=== PATIENT | male | born 1960 | race American Indian/Alaskan Native ===

== ENCOUNTER 2018-01-11 06:41 | Inpatient (IN) | payer OTHER ==
[2018-01-03 14:33] VITALS: BMI 33.0
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
[2018-01-11] MEDS ORDERED: Bacitracin Ointment 30 GM TUBE ONE (07:31)
[2018-01-11 07:51] LABS: BASO # 0.1 K/uL (0.0-0.2); BASO % 1.6 % (0.0-2.0); EOS # 0.3 K/uL (0.0-0.7); EOS % 8.7 % (0.0-4.0); HEMOGLOBIN 16.1 g/dL (12.0-18.0); LYMPH # 1.8 K/uL (1.0-4.3); LYMPH % 45.4 % (20.0-40.0); MEAN CELL VOLUME 83.3 fl (80.0-94.0); MEAN CORPUSCULAR HEMOGLOBIN 27.6 pg (27.0-31.0); MEAN CORPUSCULAR HGB CONC 33.2 g/dL (33.0-37.0); MEAN PLATELET VOLUME 10.3 fl (7.2-11.7); MONO # 0.5 K/uL (0.0-0.8); MONO % 11.4 % (0.0-10.0); NEUT # 1.3 K/uL (1.8-7.0); NEUT % 32.9 % (50.0-75.0); NRBC % 0.3 % (0.0-0.0); RBC 5.82 Mil/uL (4.40-5.90); RED CELL DISTRIBUTION WIDTH 17.5 % (11.5-14.5)
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
[2018-01-11] MEDS: Tranexamic Acid 1,000 MG in Sodium Chloride 0.9% 100 ML IVPB SCH ×3 (09:32→11:20)
[2018-01-11] MEDS ORDERED: Propofol 10 mg/ml Inj (20 ML) ONE (10:03)
[2018-01-11] MEDS ORDERED: Morphine 1 mg/ml preservative-free Inj(Duramorph) ONE (10:03)
[2018-01-11] MEDS ORDERED: Rocuronium 10 mg/ml (5 ml) ONE ×4 (10:03→13:58)
[2018-01-11] MEDS ORDERED: Succinylcholine 200 mg/10 ml Inj IV ONE (10:03)
[2018-01-11] MEDS ORDERED: Midazolam 2 MG/2 ML VIAL ONE (10:03)
[2018-01-11] MEDS ORDERED: Neostigmine 1:1000 (1 mg/ml) Inj ONE (10:04)
[2018-01-11] MEDS ORDERED: Lidocaine 4% (Laryng-O-Jet) Kit MM ONE (10:04)
[2018-01-11] MEDS ORDERED: Lactated Ringer's 1,000 ML IV ONE ×2 (10:20→13:00)
[2018-01-11] MEDS ORDERED: ePHEDrine 50 mg/ml Inj ONE (10:58)
[2018-01-11] MEDS ORDERED: Sodium Chloride 0.9% 10 ML IV ONE ×3 (10:58→13:58)
[2018-01-11] MEDS ORDERED: Sodium Chloride 0.9% 1,000 ML IV ONE (11:00)
[2018-01-11] MEDS ORDERED: Dexamethasone 4 mg/1 ml ONE (12:02)
[2018-01-11] MEDS ORDERED: EPINEPHrine 1 mg/ml (1:1000) Inj ONE (12:35)
[2018-01-11] MEDS ORDERED: Desflurane Inhalation Anesthetic Liq (240 ml) ONE (13:17)
[2018-01-11] MEDS ORDERED: HEMOSTATIC MATRIX 10 ML DIS.NEEDLE TOP ONE (13:37)
[2018-01-11] MEDS ORDERED: Oxycodone/Acetaminophen 5/325 mg Tab PO PRN (14:53)
[2018-01-11] MEDS ORDERED: Lactated Ringer's 1,000 ML IV SCH ×2 (15:00→17:30)
[2018-01-11] MEDS ORDERED: HYDROmorphone 0.5 mg/0.5 ml ISec IVP PRN (15:29)
[2018-01-11] MEDS ORDERED: Dexamethasone 4 mg/1 ml IVP PRN (15:29)
[2018-01-11] MEDS ORDERED: Trimethobenzamide 200 mg/2 mL Inj IM ONE (16:19)
--- NOTE | 2018-01-11 16:41 | RAD ---
PROCEDURE: Left Hip X-ray Radiographs. HISTORY: s/p L DENVER COMPARISON: No prior study available comparison FINDINGS: BONES: Interval left total hip replacement. Satisfactory alignment. Expected unremarkable postoperative changes within the surrounding soft tissues. . Note that the lower vertebral bodies exhibits somewhat dense appearance and less of the pelvis the which could be related to technique however underlying infiltrative sclerotic disease process including but not limited to the sclerotic metastasis not excluded. JOINTS: Mild degenerative changes right hip SOFT TISSUES: Normal. OTHER FINDINGS: None. IMPRESSION: Interval left total hip replacement. Satisfactory alignment. Expected unremarkable postoperative changes within the surrounding soft tissues. Note that the lower vertebral bodies exhibits somewhat dense appearance and less of the pelvis the which could be related to technique however underlying infiltrative sclerotic disease process including but not limited to the sclerotic metastasis not excluded.
[2018-01-11] MEDS: ceFAZolin 2 GM in Sodium Chloride 0.9% 100 ML IVPB SCH (17:30)
[2018-01-12] MEDS: ceFAZolin 2 GM in Sodium Chloride 0.9% 100 ML IVPB SCH (00:22)
[2018-01-12 06:37] LABS: HEMOGLOBIN 11.4 g/dL (12.0-18.0); MEAN CELL VOLUME 81.7 fl (80.0-94.0); MEAN CORPUSCULAR HEMOGLOBIN 27.5 pg (27.0-31.0); MEAN CORPUSCULAR HGB CONC 33.6 g/dL (33.0-37.0); RBC 4.14 Mil/uL (4.40-5.90); RED CELL DISTRIBUTION WIDTH 17.4 % (11.5-14.5); WHITE BLOOD COUNT 9.5 K/uL (4.8-10.8)
--- NOTE | 2018-01-12 09:21 | CP.PCM.PN ---
Subjective - Date & Time of Evaluation Date of Evaluation: 01/12/18 Time of Evaluation: 07:30 - Subjective Subjective: Patient states he has very little pain. Denies CP/SOb/dizziness/n/v/numbness/tingling Objective - Vital Signs/Intake and Output Vital Signs (last 24 hours): Temp Pulse Resp BP Pulse Ox 97.9 F 74 20 111/61 99 01/12/18 08:27 01/12/18 08:27 01/12/18 08:27 01/12/18 08:27 01/12/18 08:27 - Medications Medications: Current Medications Acetaminophen (Tylenol 325mg Tab) 650 mg PO Q4 PRN PRN Reason: Fever 101 degrees fahrenheit Docusate Sodium (Colace) 100 mg PO BID [facility] Enoxaparin Sodium (Lovenox) 40 mg SC DAILY [facility]; Protocol Hydrochlorothiazide (Microzide) 12.5 mg PO DAILY [facility] Losartan Potassium (Cozaar) 100 mg PO DAILY [facility] Morphine Sulfate (Morphine) 2 mg IVP Q4 PRN PRN Reason: Pain, severe (8-10) Ondansetron HCl (Zofran Inj) 4 mg IVP ONCE PRN PRN Reason: Nausea/Vomiting Oxycodone/Acetaminophen (Percocet 5/325 Mg Tab) 1 tab PO Q4 PRN PRN Reason: Pain, Mild (1-3) Stop: 01/14/18 14:54 Oxycodone/Acetaminophen (Percocet 5/325 Mg Tab) 2 tab PO Q4 PRN PRN Reason: Pain, moderate (4-7) Stop: 01/14/18 14:54 - Labs Labs: 01/12/18 05:25 01/12/18 05:25 - Extremities Exam Additional comments: LLE: +ROM ankle/toes, sensation intact, +DP/PT pulses calves soft NT neg homans dressing intact, no visible drainage. Assessment and Plan (1) Primary osteoarthritis of left hip Assessment & Plan: POD#1 s/p Left THR lovenox for VTE proph per Dr. Lopez PT/OT FWB LLE d/c planning to TCU per pt request f/u vit D d/w Dr. Lopez agrees with above Status: Acute (2) HTN (hypertension) Status: Acute
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
[2018-01-12] MEDS: Enoxaparin 40 mg Syringe SC SCH (10:25)
[2018-01-12] MEDS: Oxycodone/Acetaminophen 5/325 mg Tab PO PRN ×3 (12:31→22:48)
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
[2018-01-13] MEDS: Oxycodone/Acetaminophen 5/325 mg Tab PO PRN ×4 (03:08→22:28)
[2018-01-13 06:28] LABS: HEMOGLOBIN 11.4 g/dL (12.0-18.0); MEAN CELL VOLUME 81.9 fl (80.0-94.0); MEAN CORPUSCULAR HEMOGLOBIN 27.7 pg (27.0-31.0); MEAN CORPUSCULAR HGB CONC 33.8 g/dL (33.0-37.0); RBC 4.14 Mil/uL (4.40-5.90); RED CELL DISTRIBUTION WIDTH 17.8 % (11.5-14.5); WHITE BLOOD COUNT 8.8 K/uL (4.8-10.8)
[2018-01-13 06:36] LABS: BLOOD UREA NITROGEN 27 mg/dl (9-20); CALCIUM 8.8 mg/dL (8.4-10.2); GFR NON-AFRICAN AMERICAN > 60
--- NOTE | 2018-01-13 07:48 | PCM.SURG1 ---
Surgeon's Initial Post Op Note - Surgeon's Notes Surgeon: Jessica Electric Distribution Engineer: Sebas Perez PA-C/ GHAZALA Beltran Type of Anesthesia: General Endo, Spinal Anesthesia Administered By: DR Fermin valdovinos Pre-Operative Diagnosis: severe hypertrophic O/A L Hip Operative Findings: as above. contracture iliopsoas tendon Post-Operative Diagnosis: as above Operation Performed: L THR Anterior approach. femoral neck osteootmy. arthrotomy/synovectomy. release iluiopsoas tendon. autograft/allogrtfat bone graft to acetabulum Specimen/Specimens Removed: bone/ synovium/cartilage Estimated Blood Loss: EBL {In ML}: 75 Blood Products Given: N/A Drains Used: No Drains Post-Op Condition: Good Date of Surgery/Procedure: 01/13/18 Time of Surgery/Procedure: 11:35 (time in room/anaesthjesia indcution time 11:20/ end time 1440)
[2018-01-13] MEDS: Enoxaparin 40 mg Syringe SC SCH (08:31)
--- NOTE | 2018-01-13 12:14 | CP.PCM.PN ---
Subjective - Date & Time of Evaluation Date of Evaluation: 01/13/18 Time of Evaluation: 12:11 - Subjective Subjective: Patient states pain is controlled. He denies CP/SOB/dizziness. He is negotiating for transfer to TCU as was denied per insurance. Objective - Vital Signs/Intake and Output Vital Signs (last 24 hours): Temp Pulse Resp BP Pulse Ox 99.1 F 79 20 144/81 98 01/13/18 08:34 01/13/18 08:34 01/13/18 08:34 01/13/18 08:34 01/13/18 08:34 - Medications Medications: Current Medications Acetaminophen (Tylenol 325mg Tab) 650 mg PO Q4 PRN PRN Reason: Fever 101 degrees fahrenheit Cholecalciferol (Vitamin D) 2,000 intlu PO DAILY [facility] Docusate Sodium (Colace) 100 mg PO BID [facility] Last Admin: 01/13/18 08:29 Dose: 100 mg Enoxaparin Sodium (Lovenox) 40 mg SC DAILY [facility]; Protocol Last Admin: 01/13/18 08:31 Dose: 40 mg Hydrochlorothiazide (Microzide) 12.5 mg PO DAILY [facility] Last Admin: 01/13/18 08:30 Dose: 12.5 mg Losartan Potassium (Cozaar) 100 mg PO DAILY [facility] Last Admin: 01/13/18 08:30 Dose: 100 mg Morphine Sulfate (Morphine) 2 mg IVP Q4 PRN PRN Reason: Pain, severe (8-10) Last Admin: 01/13/18 08:19 Dose: 2 mg Ondansetron HCl (Zofran Inj) 4 mg IVP ONCE PRN PRN Reason: Nausea/Vomiting Last Admin: 01/13/18 08:36 Dose: 4 mg Oxycodone/Acetaminophen (Percocet 5/325 Mg Tab) 1 tab PO Q4 PRN PRN Reason: Pain, Mild (1-3) Stop: 01/14/18 14:54 Oxycodone/Acetaminophen (Percocet 5/325 Mg Tab) 2 tab PO Q4 PRN PRN Reason: Pain, moderate (4-7) Stop: 01/14/18 14:54 Last Admin: 01/13/18 11:17 Dose: 2 tab - Labs Labs: 01/13/18 05:20 01/13/18 05:20 - Extremities Exam Additional comments: Left hip dressing change. Dry. Incision intact no erythema. +ROM ankle/toes, sensation intact +DP?PT pulses calves sfot NT neg homans Assessment and Plan (1) Primary osteoarthritis of left hip Assessment & Plan: POD#2 s/p L THR d/c planning to TCU, denied by insurance Patient improving with PT, but not cleared to go home at current functional level cont VTE proph cont PT/OT d/w Dr. Lopez, agrees with above Status: Acute (2) HTN (hypertension) Status: Acute (3) Vitamin D deficiency Assessment & Plan: supp Status: Acute
--- NOTE | 2018-01-13 12:26 | OP ---
PROCEDURE DATE: 01/11/2018 PREOPERATIVE DIAGNOSIS: Severe hypertrophic osteoarthritis of the left hip. OPERATIVE FINDINGS Severe hypertrophic osteoarthritis of the left hip with multiple contractures, contracture of the iliopsoas tendon and capsular contractures. POSTOPERATIVE DIAGNOSIS: Severe hypertrophic osteoarthritis of the left hip with the above-noted iliopsoas tendon contracture and capsular contractures. OPERATION PERFORMED: 1. Left anterior approach hip replacement. 2. Femoral neck osteotomy. 3. Arthrotomy, synovectomy. 4. Release of iliopsoas tendon. 5. Autograft and allograft bone graft. 6. Computer navigation. SPECIMENS REMOVED: Bone, synovium, cartilage. BLOOD LOSS: 75 mL. BLOOD PRODUCTS: No blood products given. DRAINS: No drains. POSTOPERATIVE CONDITION: Stable. TIME OF PROCEDURE: 11:35. TIME IN THE ROOM: 10:20. END TIME: 1440. OPERATIVE INDICATION: Levi Keenan is a 57-year-old gentleman with severe pain and restricted range of motion of the left hip. The patient has treated this conservatively for years. The patient was seen by me, has evidence of a leg-length inequality. The patient failed conservative management over the years. Pros, cons, risks and benefits of replacement arthroplasty discussed at length with the patient. The possibility of leg length inequality, nerve injury, mechanical failure, infection, thromboembolic disease, secondary or tertiary surgery was discussed. The patient can no longer withstand the discomfort and wished the surgery to be accomplished. OPERATIVE PROCEDURE After having obtained informed consent in the above fashion, after having identified the side, site and procedure and a critical pause/time-out after the satisfactory induction of the anesthetic, the patient was placed on the [facility] traction positioner. The left lower extremity was prepped and free draped in usual fashion for lower extremity surgery, specifically anterior approach hip surgery. Under the surgeon's direction, the fluoroscope was positioned, video images were generated, therapeutic decisions were made therefrom. This having been accomplished, again after having identified the side, site and procedure and a critical pause/time-out, at a point approximately one fingerbreadth distal to the anterior superior iliac spine, a 4-inch incision was described superficial to the tensor fascia femoris muscle, three fingerbreadths posteriorly to the ASIS. The skin incision was carried down through the skin and subcutaneous tissue. The fascia on the tensor fascia femoris was divided. The muscle was taken down from the investing fascia. The Weitlaner retractor was placed. The posterior aspect of the muscle was identified. Hemostasis controlled with the Aquamantys. The muscle was mobilized from the fascia superficial to the hip joint capsule and the Medacta retractor was placed horizontally deeper exposing the fascia superficial to the hip. The fascia was divided. The anterior branch of the lateral femoral circumflex identified. This was controlled with 2 tonsil clamps. Hemostasis controlled after division of the vessel with suture ligature. This having been accomplished, fat pad was removed from the capsule with the leg in some internal rotation. Dissection was carried out superiorly at the margin of the acetabulum going medially. The lower extremity was externally rotated and the incision was carried down to the intertrochanteric line. The capsular flap was elevated and tagged. The capsular flap superiorly was released. The patient has extremely tough tissue, has marked capsular contractures which will make this operation much more challenging. This having been accomplished, preoperative and intraoperative virtual planning was accomplished and computer navigation will commence for the acetabular positioning. Femoral neck osteotomy was accomplished, successfully completed. Again because of marked contractures, the femoral head has to be caudad and divided to be removed from the acetabulum. This was done successfully with no trauma to the acetabulum. Loose bodies were removed from the acetabulum and arthrotomy and excision of loose bodies were accomplished. Arthrotomy, synovectomy and excision of loose bodies were accomplished at this point. The pulvinar was excised. The deep Charnley retractor was placed at a point on the anterior superior iliac spine one fingerbreadth posteriorly. The 2 threaded wires were placed into the anterior superior iliac spine to support the accelerometer camera for computer navigation, this commences, the pelvis was registered, both the ASIS right and left. This having been accomplished, attention was turned to the acetabulum. Sequential reaming was accomplished, reamings were denuded of articular cartilage which was saved for autograft bone grafting. Reaming was carried out to 54 mm. Reaming was accomplished with the computer navigation sensor on the cup introducer. Reaming having been accomplished, autograft bone grafting to the acetabulum was accomplished, computer navigation had been accomplished as well. The cup was impacted in the appropriate position of approximately 40 degrees to 42 degrees of abduction and 15 to 18 degrees of anteversion. This having been accomplished, attention was turned to the femur. The iliopsoas tendon was released. The pubofemoral ligament, ischiofemoral ligament and iliofemoral ligament were released carefully. The capsular tissue was released so as to deliver the femur. The femur was delivered with hyperextension of the femur. The retractors were placed and the lower extremity femur was abducted. The canal was found and the bridge of bone between the neck of the trochanter was removed. The bur was used to find the canal. The canal was found. Sequential broaching was accomplished to a #4 femoral component. Trialing was accomplished with a +3.5 head to lengthen the lower extremity since the lower extremity was short to begin with. The hip was found to be stable in all planes. This having been accomplished, the Medacta femoral component was introduced with the 28 mm ceramic outer bearing and the 54 mm polyethylene outer bearing for the Dual Mobility. The hip was reduced. Hemostasis was controlled with the Aquamantys. Great care was taken to control hemostasis. FloSeal was employed as well. The capsular flap was replaced. Autograft bone grafting had been accomplished as well as bone grafting to the superior femur. Closures in layers. A 0 Quill for the fascia on the tensor fascia femoris, followed by 0 Quill, Vicryl and mariella for skin. The pins were removed for the computer navigation which had been accomplished in navigating the acetabulum. Closures of these layers with Vicryl and Dermabond. Compression dressing was applied. Postoperative x-rays revealed acceptable position of the construct. OPERATIVE PROCEDURE: 1. Left total hip replacement, anterior approach. 2. Arthrotomy, synovectomy, excision of loose bodies. 3. Femoral neck osteotomy. 4. Release of iliopsoas tendon. 5. Autograft bone grafting to the acetabulum. 6. Computer navigation. SURGEON: Casey Lopez MD. INBOUND TELEMARKETER: Sebas Perez PA-C. SECOND ROTARY DERRICK OPERATOR: Ctarachita Becker, certified registered nursing assistant manager of operations. COMPLICATIONS: No complications. Casey Lopez MD
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
[2018-01-13] MEDS: Cholecalciferol 1,000 INTLU TAB PO SCH (13:34)
[2018-01-14] MEDS: Oxycodone/Acetaminophen 5/325 mg Tab PO PRN ×2 (03:00→06:42)
[2018-01-14] MEDS: Cholecalciferol 1,000 INTLU TAB PO SCH (08:05)
[2018-01-14] MEDS: Enoxaparin 40 mg Syringe SC SCH (08:07)
[2018-01-14 09:00] VITALS: BP 113/67; PULSE 68; RESP 20; TEMP 98.6; O2SAT 98
--- NOTE | 2018-01-14 10:25 | CP.PCM.DIS ---
<MatBaudilio - Last Filed: 01/14/18 10:25> Provider - Provider Date of Admission: 01/11/18 14:53 Attending physician: Oumou Loyd DO Time Spent in preparation of Discharge (in minutes): 35 Diagnosis - Discharge Diagnosis (1) Status post total hip replacement, left Status: Resolved Hospital Course - Lab Results Lab Results: Most Recent Lab Values WBC 8.8 K/uL (4.8-10.8) 01/13/18 05:20 RBC 4.14 Mil/uL (4.40-5.90) L 01/13/18 05:20 Hgb 11.4 g/dL (12.0-18.0) L 01/13/18 05:20 Hct 33.9 % (35.0-51.0) L 01/13/18 05:20 MCV 81.9 fl (80.0-94.0) 01/13/18 05:20 MCH 27.7 pg (27.0-31.0) 01/13/18 05:20 MCHC 33.8 g/dL (33.0-37.0) 01/13/18 05:20 RDW 17.8 % (11.5-14.5) H 01/13/18 05:20 Plt Count 162 K/uL (130-400) 01/13/18 05:20 MPV 10.3 fl (7.2-11.7) 01/11/18 07:20 Neut % (Auto) 32.9 % (50.0-75.0) L 01/11/18 07:20 Lymph % (Auto) 45.4 % (20.0-40.0) H 01/11/18 07:20 [place] % (Auto) 11.4 % (0.0-10.0) H 01/11/18 07:20 Eos % (Auto) 8.7 % (0.0-4.0) H 01/11/18 07:20 Baso % (Auto) 1.6 % (0.0-2.0) 01/11/18 07:20 Neut # (Auto) 1.3 K/uL (1.8-7.0) L 01/11/18 07:20 Lymph # (Auto) 1.8 K/uL (1.0-4.3) 01/11/18 07:20 [place] # (Auto) 0.5 K/uL (0.0-0.8) 01/11/18 07:20 Eos # (Auto) 0.3 K/uL (0.0-0.7) 01/11/18 07:20 Baso # (Auto) 0.1 K/uL (0.0-0.2) 01/11/18 07:20 Sodium 138 mmol/l (132-148) 01/13/18 05:20 Potassium 4.3 MMOL/L (3.6-5.0) 01/13/18 05:20 Chloride 105 mmol/L (98-107) 01/13/18 05:20 Carbon Dioxide 26 mmol/L (22-30) 01/13/18 05:20 Anion Gap 11 (10-20) 01/13/18 05:20 BUN 27 mg/dl (9-20) H 01/13/18 05:20 Creatinine 1.2 mg/dl (0.8-1.5) 01/13/18 05:20 Est GFR ( Amer) > 60 01/13/18 05:20 Est GFR (Non-Af Amer) > 60 01/13/18 05:20 Random Glucose 116 mg/dL (75-110) H 01/13/18 05:20 Calcium 8.8 mg/dL (8.4-10.2) 01/13/18 05:20 25-OH Vitamin D Total 25.6 NG/ML (30.0-100.0) L 01/12/18 09:31 Blood Type O POSITIVE 01/11/18 07:20 Antibody Screen Negative 01/11/18 07:20 Crossmatch See Detail 01/11/18 07:20 BBK History Checked Patient has bt 01/11/18 07:20 - Hospital Course Hospital Course: PT is a 57 y/o male w. hx of Left Hip Osteoarthritis who presented to [facility] after failing conservative management for his L. Hip Osteoarthritis and was admitted for THR which was completed by Dr. Lopez on 01/11/18 under. Pt was stable post operatively and pain was controlled so he was cleared for discharge w/ home services. Pt requested TCU for further strength and mobility so he will be discharged to TCU for further rehabilitation. Medication: Will continue Lovenox 40SQ for DVT ppx while in TCU. Discharge Exam - Head Exam Head Exam: ATRAUMATIC, NORMOCEPHALIC - Eye Exam Eye Exam: Normal appearance - ENT Exam ENT Exam: Mucous Membranes Moist - Respiratory Exam Respiratory Exam: Clear to PA & Lateral - Cardiovascular Exam Cardiovascular Exam: REGULAR RHYTHM, +S1, +S2. absent: Systolic Murmur - GI/Abdominal Exam GI & Abdominal Exam: Normal Bowel Sounds - Extremities Exam Extremities exam: full ROM, normal capillary refill, normal inspection (Left Hip Dressing), pedal pulses present - Neurological Exam Neurological exam: Alert, Oriented x3 - Psychiatric Exam Psychiatric exam: Normal Affect - Skin Skin Exam: Normal Color Discharge Plan - Follow Up Plan Condition: GOOD Disposition: TRANSF TO SNF Instructions: Anterior Hip Replacement (DC), Weight-Bearing Restrictions Additional Instructions: follow up with Dr Lopez 5-7 days or as indicated by surgeon. Referrals: Casey Lopez III, MD [Staff Provider] - <Jose Antonio Montero - Last Filed: 01/14/18 10:56> Provider - Provider Date of Admission: 01/11/18 14:53 Attending physician: Oumou Loyd DO Hospital Course - Lab Results Lab Results: Most Recent Lab Values WBC 8.8 K/uL (4.8-10.8) 01/13/18 05:20 RBC 4.14 Mil/uL (4.40-5.90) L 01/13/18 05:20 Hgb 11.4 g/dL (12.0-18.0) L 01/13/18 05:20 Hct 33.9 % (35.0-51.0) L 01/13/18 05:20 MCV 81.9 fl (80.0-94.0) 01/13/18 05:20 MCH 27.7 pg (27.0-31.0) 01/13/18 05:20 MCHC 33.8 g/dL (33.0-37.0) 01/13/18 05:20 RDW 17.8 % (11.5-14.5) H 01/13/18 05:20 Plt Count 162 K/uL (130-400) 01/13/18 05:20 MPV 10.3 fl (7.2-11.7) 01/11/18 07:20 Neut % (Auto) 32.9 % (50.0-75.0) L 01/11/18 07:20 Lymph % (Auto) 45.4 % (20.0-40.0) H 01/11/18 07:20 [place] % (Auto) 11.4 % (0.0-10.0) H 01/11/18 07:20 Eos % (Auto) 8.7 % (0.0-4.0) H 01/11/18 07:20 Baso % (Auto) 1.6 % (0.0-2.0) 01/11/18 07:20 Neut # (Auto) 1.3 K/uL (1.8-7.0) L 01/11/18 07:20 Lymph # (Auto) 1.8 K/uL (1.0-4.3) 01/11/18 07:20 [place] # (Auto) 0.5 K/uL (0.0-0.8) 01/11/18 07:20 Eos # (Auto) 0.3 K/uL (0.0-0.7) 01/11/18 07:20 Baso # (Auto) 0.1 K/uL (0.0-0.2) 01/11/18 07:20 Sodium 138 mmol/l (132-148) 01/13/18 05:20 Potassium 4.3 MMOL/L (3.6-5.0) 01/13/18 05:20 Chloride 105 mmol/L (98-107) 01/13/18 05:20 Carbon Dioxide 26 mmol/L (22-30) 01/13/18 05:20 Anion Gap 11 (10-20) 01/13/18 05:20 BUN 27 mg/dl (9-20) H 01/13/18 05:20 Creatinine 1.2 mg/dl (0.8-1.5) 01/13/18 05:20 Est GFR ( Amer) > 60 01/13/18 05:20 Est GFR (Non-Af Amer) > 60 01/13/18 05:20 Random Glucose 116 mg/dL (75-110) H 01/13/18 05:20 Calcium 8.8 mg/dL (8.4-10.2) 01/13/18 05:20 25-OH Vitamin D Total 25.6 NG/ML (30.0-100.0) L 01/12/18 09:31 Blood Type O POSITIVE 01/11/18 07:20 Antibody Screen Negative 01/11/18 07:20 Crossmatch See Detail 01/11/18 07:20 BBK History Checked Patient has bt 01/11/18 07:20 Attending/Attestation - Attestation I have personally seen and examined this patient.: Yes I have fully participated in the care of the patient.: Yes I have reviewed all pertinent clinical information, including history, physical exam and plan: Yes Notes (Text): 01/14/18 10:55 Patient seen and examined with resident. Case was discussed and agreed with plan to transfer patient to TCU for therapy.
== END 2018-01-14 08:40 | disposition short-term general hospital (02) | DRG 470 ==
LOC: H.OPSURG 06:41 → H.MEDSURG1 14:53
PROVIDERS: ADMIT Student in an Organized Health Care Education/Training Program; ATTEND Student in an Organized Health Care Education/Training Program
PROC: 0SRB04Z Replacement of Left Hip Joint with Ceramic on Polyethylene Synthetic Substitute, Open Approach (ICD-10-PCS; principal; 2018-01-11 09:45)
DX: M16.12 Unilateral primary osteoarthritis, left hip (principal); Z87.891 Personal history of nicotine dependence; E55.9 Vitamin D deficiency, unspecified; I10 Essential (primary) hypertension; M19.90 Unspecified osteoarthritis, unspecified site

== ENCOUNTER 2018-01-14 09:20 | Inpatient (IN) | payer OTHER ==
[2018-01-03 14:33] VITALS: BMI 33.0
[2018-01-14] MEDS ORDERED: Oxycodone/Acetaminophen 5/325 mg Tab PO PRN (10:15)
[2018-01-14] MEDS: Oxycodone/Acetaminophen 5/325 mg Tab PO PRN ×4 (10:27→22:05)
[2018-01-15] MEDS: Oxycodone/Acetaminophen 5/325 mg Tab PO PRN ×6 (01:56→23:49)
[2018-01-15] MEDS: Enoxaparin 40 mg Syringe SC SCH (08:26)
[2018-01-15] MEDS: Cholecalciferol 1,000 INTLU TAB PO SCH (08:27)
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
[2018-01-16] MEDS: Oxycodone/Acetaminophen 5/325 mg Tab PO PRN ×4 (09:02→23:06)
[2018-01-16] MEDS: Cholecalciferol 1,000 INTLU TAB PO SCH (09:02)
[2018-01-16] MEDS: Enoxaparin 40 mg Syringe SC SCH (09:02)
--- NOTE | 2018-01-16 17:46 | CP.PCM.PN ---
Subjective - Date & Time of Evaluation Date of Evaluation: 01/16/18 Time of Evaluation: 17:45 - Subjective Subjective: Patient progressing well. No new complaints. Objective - Vital Signs/Intake and Output Vital Signs (last 24 hours): Temp Pulse Resp BP Pulse Ox 97.7 F 65 20 131/66 99 01/16/18 10:00 01/16/18 10:00 01/16/18 10:00 01/16/18 10:00 01/16/18 10:00 - Medications Medications: Current Medications Acetaminophen (Tylenol 325mg Tab) 650 mg PO Q4 PRN PRN Reason: Fever 101 degrees fahrenheit Cholecalciferol (Vitamin D) 2,000 intlu PO DAILY [facility] Last Admin: 01/16/18 09:02 Dose: 2,000 intlu Docusate Sodium (Colace) 100 mg PO BID [facility] Last Admin: 01/16/18 16:25 Dose: 100 mg Enoxaparin Sodium (Lovenox) 40 mg SC DAILY [facility]; Protocol Last Admin: 01/16/18 09:02 Dose: 40 mg Hydrochlorothiazide (Microzide) 12.5 mg PO DAILY [facility] Last Admin: 01/16/18 09:04 Dose: 12.5 mg Lactulose (Enulose) 20 gm PO DAILY PRN PRN Reason: Constipation Last Admin: 01/16/18 12:05 Dose: 20 gm Losartan Potassium (Cozaar) 100 mg PO DAILY [facility] Last Admin: 01/16/18 09:03 Dose: 100 mg Oxycodone/Acetaminophen (Percocet 5/325 Mg Tab) 1 tab PO Q4 PRN PRN Reason: Pain, Mild (1-3) Stop: 01/17/18 10:16 Oxycodone/Acetaminophen (Percocet 5/325 Mg Tab) 2 tab PO Q4 PRN PRN Reason: Pain, severe (8-10) Stop: 01/17/18 10:17 Last Admin: 01/16/18 14:47 Dose: 2 tab - Extremities Exam Additional comments: Left hip: dressing changed. Dry. Incision intact, no erythema. +ROM ankle/toes, sensation intact, +DP/PT pulses, calves soft NT neg homans, op site applied. Assessment and Plan (1) Status post total hip replacement, left Assessment & Plan: POD#5 s/p left THR progressing well PT/OT VTE proph ortho stable d/w DR. Lopez, agrees with above Status: Resolved
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
[2018-01-17] MEDS: Oxycodone/Acetaminophen 5/325 mg Tab PO PRN ×6 (02:59→23:21)
[2018-01-17] MEDS: Enoxaparin 40 mg Syringe SC SCH (08:09)
[2018-01-17] MEDS: Cholecalciferol 1,000 INTLU TAB PO SCH (08:09)
[2018-01-17] MEDS: Lidocaine 5% Patch TD SCH (10:36)
[2018-01-17] MEDS ORDERED: Oxycodone/Acetaminophen 5/325 mg Tab PO PRN (11:14)
--- NOTE | 2018-01-17 12:53 | RAD ---
Date of service: 01/17/2018 PROCEDURE: Left Knee Radiographs. HISTORY: Pain. COMPARISON: None. FINDINGS: BONES: Normal. No fracture. JOINTS: Normal. No osteoarthritis. JOINT EFFUSION: None. OTHER FINDINGS: None. IMPRESSION: Normal radiographs of the left knee.
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
[2018-01-18] MEDS: Oxycodone/Acetaminophen 5/325 mg Tab PO PRN ×5 (03:32→20:31)
[2018-01-18] MEDS: Cholecalciferol 1,000 INTLU TAB PO SCH (08:23)
[2018-01-18] MEDS: Enoxaparin 40 mg Syringe SC SCH (08:24)
[2018-01-18] MEDS: Lidocaine 5% Patch TD SCH (08:24)
--- NOTE | 2018-01-18 11:38 | CP.PCM.PN ---
Subjective - Date & Time of Evaluation Date of Evaluation: 01/17/18 Time of Evaluation: 12:00 - Subjective Subjective: no acute complaints of pain Objective - Vital Signs/Intake and Output Vital Signs (last 24 hours): Temp Pulse Resp BP Pulse Ox 98.2 F 70 20 142/72 99 01/18/18 08:20 01/18/18 08:22 01/18/18 08:20 01/18/18 08:22 01/18/18 08:20 - Medications Medications: Current Medications Acetaminophen (Tylenol 325mg Tab) 650 mg PO Q4 PRN PRN Reason: Fever 101 degrees fahrenheit Cholecalciferol (Vitamin D) 2,000 intlu PO DAILY [facility] Last Admin: 01/18/18 08:23 Dose: 2,000 intlu Docusate Sodium (Colace) 100 mg PO BID [facility] Last Admin: 01/18/18 08:22 Dose: 100 mg Enoxaparin Sodium (Lovenox) 40 mg SC DAILY [facility]; Protocol Last Admin: 01/18/18 08:24 Dose: 40 mg Hydrochlorothiazide (Microzide) 12.5 mg PO DAILY [facility] Last Admin: 01/18/18 08:22 Dose: 12.5 mg Lactulose (Enulose) 20 gm PO DAILY PRN PRN Reason: Constipation Last Admin: 01/16/18 12:05 Dose: 20 gm Lidocaine (Lidoderm) 1 ea TD DAILY [facility] Last Admin: 01/18/18 08:24 Dose: 1 ea Losartan Potassium (Cozaar) 100 mg PO DAILY [facility] Last Admin: 01/18/18 08:22 Dose: 100 mg Oxycodone/Acetaminophen (Percocet 5/325 Mg Tab) 2 tab PO Q4 PRN PRN Reason: Pain, severe (8-10) Stop: 01/20/18 11:15 Last Admin: 01/18/18 08:21 Dose: 2 tab Oxycodone/Acetaminophen (Percocet 5/325 Mg Tab) 1 tab PO Q4 PRN PRN Reason: Pain, moderate (4-7) Stop: 01/20/18 11:15 - Constitutional Appears: Well - Head Exam Head Exam: ATRAUMATIC - Eye Exam Eye Exam: EOMI, Normal appearance, PERRL Pupil Exam: NORMAL ACCOMODATION - ENT Exam ENT Exam: Mucous Membranes Moist, Normal Exam - Neck Exam Neck Exam: Full ROM, Normal Inspection - Respiratory Exam Respiratory Exam: Clear to Ausculation Bilateral, NORMAL BREATHING PATTERN - Cardiovascular Exam Cardiovascular Exam: REGULAR RHYTHM - GI/Abdominal Exam GI & Abdominal Exam: Soft, Normal Bowel Sounds - Rectal Exam Rectal Exam: NORMAL INSPECTION - Exam External exam: NORMAL EXTERNAL EXAM - Extremities Exam Extremities Exam: Full ROM, Normal Capillary Refill - Back Exam Back Exam: NORMAL INSPECTION - Neurological Exam Neurological Exam: Alert, Awake Neuro motor strength exam: Left Lower Extremity: 3 - Psychiatric Exam Psychiatric exam: Normal Affect, Normal Mood - Skin Skin Exam: Dry, Intact Assessment and Plan (1) HTN (hypertension) Status: Acute (2) Primary osteoarthritis of left hip Assessment & Plan: Left THR plan for physical, occupational therapy, equipment and Dc planning Status: Acute
--- NOTE | 2018-01-18 13:09 | CP.PCM.PN ---
Subjective - Date & Time of Evaluation Date of Evaluation: 01/18/18 Time of Evaluation: 13:07 - Subjective Subjective: Patient still complaining of knee pain. He says the pain is in front, outside and back of knee. Hip pain is minimal .Denies CP/SOB/dizziness/palp/.cough Objective - Vital Signs/Intake and Output Vital Signs (last 24 hours): Temp Pulse Resp BP Pulse Ox 98.2 F 70 20 142/72 99 01/18/18 08:20 01/18/18 08:22 01/18/18 08:20 01/18/18 08:22 01/18/18 08:20 - Medications Medications: Current Medications Acetaminophen (Tylenol 325mg Tab) 650 mg PO Q4 PRN PRN Reason: Fever 101 degrees fahrenheit Cholecalciferol (Vitamin D) 2,000 intlu PO DAILY [facility] Last Admin: 01/18/18 08:23 Dose: 2,000 intlu Docusate Sodium (Colace) 100 mg PO BID [facility] Last Admin: 01/18/18 08:22 Dose: 100 mg Enoxaparin Sodium (Lovenox) 40 mg SC DAILY [facility]; Protocol Last Admin: 01/18/18 08:24 Dose: 40 mg Hydrochlorothiazide (Microzide) 12.5 mg PO DAILY [facility] Last Admin: 01/18/18 08:22 Dose: 12.5 mg Lactulose (Enulose) 20 gm PO DAILY PRN PRN Reason: Constipation Last Admin: 01/16/18 12:05 Dose: 20 gm Lidocaine (Lidoderm) 1 ea TD DAILY [facility] Last Admin: 01/18/18 08:24 Dose: 1 ea Losartan Potassium (Cozaar) 100 mg PO DAILY [facility] Last Admin: 01/18/18 08:22 Dose: 100 mg Oxycodone/Acetaminophen (Percocet 5/325 Mg Tab) 2 tab PO Q4 PRN PRN Reason: Pain, severe (8-10) Stop: 01/20/18 11:15 Last Admin: 01/18/18 12:25 Dose: 2 tab Oxycodone/Acetaminophen (Percocet 5/325 Mg Tab) 1 tab PO Q4 PRN PRN Reason: Pain, moderate (4-7) Stop: 01/20/18 11:15 - Extremities Exam Additional comments: Left hip: incision intact, dry, no erythema +ROM ankle;/toes, sensation intact Assessment and Plan (1) Status post total hip replacement, left Assessment & Plan: POD#7 s/p left THR dopplers r/o DVT due to knee pain and swelling in leg knee xrays negative for fracture, minimal joint space narrowing, not consistent with pain cont lovenox patient seen and examined with Dr. Lopez, agrees with above Status: Resolved Radiology Interpretation - Radiology Interpretation #3 Interpretation: atient Name / ID : RANJANA MALIK / [id number] Exam Date : 01/17/2018 10:52:31 ( Approved ) Study Comment : Sex / Age : M / 57Y Creator : Miguel Jung MD Dictator : Miguel Jung MD Cup Trimming Machine Operator : Garbage Stoker : Miguel Jung MD Approver2 : Report Date : 01/17/2018 12:47:55 My Comment : Date of service: 01/17/2018 PROCEDURE: Left Knee Radiographs. HISTORY: Pain. COMPARISON: None. FINDINGS: BONES: Normal. No fracture. JOINTS: Normal. No osteoarthritis. JOINT EFFUSION: None. OTHER FINDINGS: None. IMPRESSION: Normal radiographs of the left knee.
[2018-01-19] MEDS: Oxycodone/Acetaminophen 5/325 mg Tab PO PRN ×6 (00:28→22:31)
[2018-01-19] MEDS: Cholecalciferol 1,000 INTLU TAB PO SCH (08:41)
[2018-01-19] MEDS: Enoxaparin 40 mg Syringe SC SCH (08:42)
[2018-01-19] MEDS: Lidocaine 5% Patch TD SCH (08:45)
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
[2018-01-20] MEDS: Oxycodone/Acetaminophen 5/325 mg Tab PO PRN ×5 (02:34→20:57)
[2018-01-20] MEDS: Enoxaparin 40 mg Syringe SC SCH (08:47)
[2018-01-20] MEDS: Cholecalciferol 1,000 INTLU TAB PO SCH (08:48)
[2018-01-20] MEDS: Lidocaine 5% Patch TD SCH (09:59)
--- NOTE | 2018-01-20 12:31 | CP.PCM.PN ---
Subjective - Date & Time of Evaluation Date of Evaluation: 01/19/18 Time of Evaluation: 15:00 - Subjective Subjective: no acute complaints at present, left discomfort Objective - Vital Signs/Intake and Output Vital Signs (last 24 hours): Temp Pulse Resp BP Pulse Ox 98.2 F 86 20 134/70 99 01/20/18 10:00 01/20/18 10:00 01/20/18 10:00 01/20/18 10:00 01/20/18 10:00 - Medications Medications: Current Medications Acetaminophen (Tylenol 325mg Tab) 650 mg PO Q4 PRN PRN Reason: Fever 101 degrees fahrenheit Cholecalciferol (Vitamin D) 2,000 intlu PO DAILY [facility] Last Admin: 01/20/18 08:48 Dose: 2,000 intlu Docusate Sodium (Colace) 100 mg PO BID [facility] Last Admin: 01/20/18 08:48 Dose: 100 mg Hydrochlorothiazide (Microzide) 12.5 mg PO DAILY [facility] Last Admin: 01/20/18 08:48 Dose: 12.5 mg Lactulose (Enulose) 20 gm PO DAILY PRN PRN Reason: Constipation Last Admin: 01/19/18 16:51 Dose: 20 gm Lidocaine (Lidoderm) 1 ea TD DAILY [facility] Last Admin: 01/20/18 09:59 Dose: 1 ea Losartan Potassium (Cozaar) 100 mg PO DAILY [facility] Last Admin: 01/20/18 08:48 Dose: 100 mg - Constitutional Appears: Well - Head Exam Head Exam: ATRAUMATIC, NORMAL INSPECTION, NORMOCEPHALIC - Eye Exam Eye Exam: EOMI, Normal appearance, PERRL Pupil Exam: NORMAL ACCOMODATION - ENT Exam ENT Exam: Mucous Membranes Moist, Normal Exam - Neck Exam Neck Exam: Full ROM, Normal Inspection - Respiratory Exam Respiratory Exam: Clear to Ausculation Bilateral, NORMAL BREATHING PATTERN - Cardiovascular Exam Cardiovascular Exam: REGULAR RHYTHM - GI/Abdominal Exam GI & Abdominal Exam: Soft, Normal Bowel Sounds - Rectal Exam Rectal Exam: NORMAL INSPECTION - Exam External exam: NORMAL EXTERNAL EXAM - Back Exam Back Exam: NORMAL INSPECTION - Neurological Exam Neurological Exam: Alert, Awake Neuro motor strength exam: Right Lower Extremity: 3 - Psychiatric Exam Psychiatric exam: Normal Affect, Normal Mood - Skin Skin Exam: Dry, Normal Color Assessment and Plan (1) HTN (hypertension) Status: Acute (2) Primary osteoarthritis of left hip Assessment & Plan: plan to continue with physical, occupational therapy and rehab planning for discharge , equipment evaluation Status: Acute
--- NOTE | 2018-01-20 13:57 | CP.PCM.PN ---
Subjective - Date & Time of Evaluation Date of Evaluation: 01/20/18 Time of Evaluation: 07:00 - Subjective Subjective: Patient seen and examined at bedside comfortable. C/o diffuse LLE pain and swelling. LE duplex performed resulting negative. Tolerating PT well otherwise. Denies CP/SOB/fever/LOCK. Objective - Vital Signs/Intake and Output Vital Signs (last 24 hours): Temp Pulse Resp BP Pulse Ox 98.2 F 86 20 134/70 99 01/20/18 10:00 01/20/18 10:00 01/20/18 10:00 01/20/18 10:00 01/20/18 10:00 - Medications Medications: Current Medications Acetaminophen (Tylenol 325mg Tab) 650 mg PO Q4 PRN PRN Reason: Fever 101 degrees fahrenheit Cholecalciferol (Vitamin D) 2,000 intlu PO DAILY [facility] Last Admin: 01/20/18 08:48 Dose: 2,000 intlu Docusate Sodium (Colace) 100 mg PO BID [facility] Last Admin: 01/20/18 08:48 Dose: 100 mg Hydrochlorothiazide (Microzide) 12.5 mg PO DAILY [facility] Last Admin: 01/20/18 08:48 Dose: 12.5 mg Lactulose (Enulose) 20 gm PO DAILY PRN PRN Reason: Constipation Last Admin: 01/19/18 16:51 Dose: 20 gm Lidocaine (Lidoderm) 1 ea TD DAILY [facility] Last Admin: 01/20/18 09:59 Dose: 1 ea Losartan Potassium (Cozaar) 100 mg PO DAILY [facility] Last Admin: 01/20/18 08:48 Dose: 100 mg Oxycodone/Acetaminophen (Percocet 5/325 Mg Tab) 2 tab PO Q4 PRN PRN Reason: Pain, severe (8-10) Stop: 01/23/18 12:51 Last Admin: 01/20/18 13:13 Dose: 2 tab - Extremities Exam Additional comments: LLE: Dressing CDI mild diffuse edema sensation intact SP/DP/TN motor intact EHL/FHL/TA/G pedal pulses intact comps soft and NT Assessment and Plan (1) Status post total hip replacement, left Assessment & Plan: POD #9 s/p L [place] -PT/OT -DVT ppx -b/l MARLE[place] stockings -elevate LLE while in bed -ice to L hip -orthopedically stable -above d/w Dr. Lopez in agreement Status: Resolved Radiology Interpretation - Notes: Notes:: Accession No. : [id number] Patient Name / ID : RANJANA MALIK / [id number] Exam Date : 01/18/2018 18:13:36 ( Approved ) Study Comment : Sex / Age : M / 57Y Creator : Miguel Jung MD Dictator : Miguel Jung MD Rotary Drill Operator : Wool Fleece Sorter : Miguel Jung MD Approver2 : Report Date : 01/19/2018 12:53:49 My Comment : Date of service: 01/18/2018 PROCEDURE: Bilateral lower extremity venous duplex Doppler. HISTORY: SWELLING. COMPARISON: None available. TECHNIQUE: Bilateral common femoral, superficial femoral, popliteal and posterior tibial veins were evaluated. Flow was assessed with color Doppler, compressibility, assessment of phasic flow and augmentation response. FINDINGS: COMMON FEMORAL VEIN: Right CFV: Unremarkable. Left CFV: Unremarkable. SUPERFICIAL FEMORAL VEIN: Right SFV: Unremarkable. Left SFV: Unremarkable. POPLITEAL VEIN: Right Popliteal: Unremarkable. Left Popliteal: Unremarkable. POSTERIOR TIBIAL VEIN: Right PTV: Unremarkable. Left PTV: Unremarkable. OTHER FINDINGS: Morphologically, unremarkable lymph node(s) left inguinal region 1.2 x 2.8 x 3.7 cm IMPRESSION: No evidence of deep venous thrombosis.
[2018-01-21] MEDS: Oxycodone/Acetaminophen 5/325 mg Tab PO PRN ×6 (00:59→21:26)
[2018-01-21 07:48] LABS: MEAN CELL VOLUME 82.4 fl (80.0-94.0); MEAN CORPUSCULAR HEMOGLOBIN 27.4 pg (27.0-31.0); MEAN CORPUSCULAR HGB CONC 33.2 g/dL (33.0-37.0); RBC 4.37 Mil/uL (4.40-5.90); RED CELL DISTRIBUTION WIDTH 17.5 % (11.5-14.5)
[2018-01-21 08:04] LABS: BLOOD UREA NITROGEN 17 mg/dl (9-20); CALCIUM 9.4 mg/dL (8.4-10.2); GFR NON-AFRICAN AMERICAN > 60
[2018-01-21] MEDS: Cholecalciferol 1,000 INTLU TAB PO SCH (08:17)
[2018-01-21] MEDS: Lidocaine 5% Patch TD SCH (08:17)
[2018-01-21] MEDS: Enoxaparin 40 mg Syringe SC SCH (10:22)
[2018-01-22] MEDS: Oxycodone/Acetaminophen 5/325 mg Tab PO PRN ×5 (01:25→20:59)
[2018-01-22] MEDS: Enoxaparin 40 mg Syringe SC SCH (08:49)
[2018-01-22] MEDS: Lidocaine 5% Patch TD SCH (08:49)
[2018-01-22] MEDS: Cholecalciferol 1,000 INTLU TAB PO SCH (08:50)
--- NOTE | 2018-01-22 09:20 | CP.PCM.PN ---
Subjective - Date & Time of Evaluation Date of Evaluation: 01/21/18 Time of Evaluation: 08:15 - Subjective Subjective: S- ptcomfortable essentially no post op discomfort Objective - Vital Signs/Intake and Output Vital Signs (last 24 hours): Temp Pulse Resp BP Pulse Ox 97.2 F L 69 20 139/66 99 01/22/18 07:38 01/22/18 08:49 01/22/18 07:38 01/22/18 08:49 01/22/18 07:38 - Medications Medications: Current Medications Acetaminophen (Tylenol 325mg Tab) 650 mg PO Q4 PRN PRN Reason: Fever 101 degrees fahrenheit Cholecalciferol (Vitamin D) 2,000 intlu PO DAILY [facility] Last Admin: 01/22/18 08:50 Dose: 2,000 intlu Docusate Sodium (Colace) 100 mg PO BID [facility] Last Admin: 01/22/18 08:48 Dose: 100 mg Enoxaparin Sodium (Lovenox) 40 mg SC DAILY [facility]; Protocol Last Admin: 01/22/18 08:49 Dose: 40 mg Hydrochlorothiazide (Microzide) 12.5 mg PO DAILY [facility] Last Admin: 01/22/18 08:50 Dose: 12.5 mg Lactulose (Enulose) 20 gm PO DAILY PRN PRN Reason: Constipation Last Admin: 01/22/18 08:50 Dose: 20 gm Lidocaine (Lidoderm) 1 ea TD DAILY [facility] Last Admin: 01/22/18 08:49 Dose: 1 ea Losartan Potassium (Cozaar) 100 mg PO DAILY [facility] Last Admin: 01/22/18 08:49 Dose: 100 mg Oxycodone/Acetaminophen (Percocet 5/325 Mg Tab) 2 tab PO Q4 PRN PRN Reason: Pain, severe (8-10) Stop: 01/23/18 12:51 Last Admin: 01/22/18 05:27 Dose: 2 tab - Labs Labs: 01/21/18 06:00 01/21/18 06:00 - Additional Findings Additional findings: Objective ' systemic- wnl Musculoskektla stance/gait- deferred orthopedcially stable hip wound benign Assessment and Plan - Assessment and Plan (Free Text) Assessment: A- s/p L THR P_ orthopedcially stable weigfth bearing to tolerance
--- NOTE | 2018-01-22 09:21 | CP.PCM.PN ---
Subjective - Date & Time of Evaluation Date of Evaluation: 01/22/18 Time of Evaluation: 09:15 - Subjective Subjective: S- pt comfortbale without complaints of pain whatsoever Objective - Vital Signs/Intake and Output Vital Signs (last 24 hours): Temp Pulse Resp BP Pulse Ox 97.2 F L 69 20 139/66 99 01/22/18 07:38 01/22/18 08:49 01/22/18 07:38 01/22/18 08:49 01/22/18 07:38 - Medications Medications: Current Medications Acetaminophen (Tylenol 325mg Tab) 650 mg PO Q4 PRN PRN Reason: Fever 101 degrees fahrenheit Cholecalciferol (Vitamin D) 2,000 intlu PO DAILY [facility] Last Admin: 01/22/18 08:50 Dose: 2,000 intlu Docusate Sodium (Colace) 100 mg PO BID [facility] Last Admin: 01/22/18 08:48 Dose: 100 mg Enoxaparin Sodium (Lovenox) 40 mg SC DAILY [facility]; Protocol Last Admin: 01/22/18 08:49 Dose: 40 mg Hydrochlorothiazide (Microzide) 12.5 mg PO DAILY [facility] Last Admin: 01/22/18 08:50 Dose: 12.5 mg Lactulose (Enulose) 20 gm PO DAILY PRN PRN Reason: Constipation Last Admin: 01/22/18 08:50 Dose: 20 gm Lidocaine (Lidoderm) 1 ea TD DAILY [facility] Last Admin: 01/22/18 08:49 Dose: 1 ea Losartan Potassium (Cozaar) 100 mg PO DAILY [facility] Last Admin: 01/22/18 08:49 Dose: 100 mg Oxycodone/Acetaminophen (Percocet 5/325 Mg Tab) 2 tab PO Q4 PRN PRN Reason: Pain, severe (8-10) Stop: 01/23/18 12:51 Last Admin: 01/22/18 05:27 Dose: 2 tab - Labs Labs: 01/21/18 06:00 01/21/18 06:00 - Additional Findings Additional findings: Objective MUsculoskekltal\wound benign orthopedicaly stable Assessment and Plan - Assessment and Plan (Free Text) Assessment: A0- s/p L THR P - orthopedically stable weight bearingto tolerance
[2018-01-23] MEDS: Oxycodone/Acetaminophen 5/325 mg Tab PO PRN ×6 (00:51→21:54)
[2018-01-23] MEDS: Enoxaparin 40 mg Syringe SC SCH (09:07)
[2018-01-23] MEDS: Cholecalciferol 1,000 INTLU TAB PO SCH (09:07)
[2018-01-23] MEDS: Lidocaine 5% Patch TD SCH (09:07)
--- NOTE | 2018-01-23 10:23 | CP.PCM.PN ---
Subjective - Date & Time of Evaluation Date of Evaluation: 01/23/18 Time of Evaluation: 08:30 - Subjective Subjective: Patient seen and examined OOB to chair comfortable. Pain is much improved, controlled with PO pain meds. L knee pain has also improved but aches with activity. No new complaints. Objective - Vital Signs/Intake and Output Vital Signs (last 24 hours): Temp Pulse Resp BP Pulse Ox 98.1 F 75 16 122/75 99 01/23/18 08:16 01/23/18 09:08 01/23/18 08:16 01/23/18 09:08 01/23/18 08:16 - Medications Medications: Current Medications Acetaminophen (Tylenol 325mg Tab) 650 mg PO Q4 PRN PRN Reason: Fever 101 degrees fahrenheit Cholecalciferol (Vitamin D) 2,000 intlu PO DAILY [facility] Last Admin: 01/23/18 09:07 Dose: 2,000 intlu Docusate Sodium (Colace) 100 mg PO BID [facility] Last Admin: 01/23/18 09:08 Dose: 100 mg Enoxaparin Sodium (Lovenox) 40 mg SC DAILY [facility]; Protocol Last Admin: 01/23/18 09:07 Dose: 40 mg Hydrochlorothiazide (Microzide) 12.5 mg PO DAILY [facility] Last Admin: 01/23/18 09:08 Dose: 12.5 mg Lactulose (Enulose) 20 gm PO DAILY PRN PRN Reason: Constipation Last Admin: 01/22/18 08:50 Dose: 20 gm Lidocaine (Lidoderm) 1 ea TD DAILY [facility] Last Admin: 01/23/18 09:07 Dose: 1 ea Losartan Potassium (Cozaar) 100 mg PO DAILY [facility] Last Admin: 01/23/18 09:08 Dose: 100 mg Oxycodone/Acetaminophen (Percocet 5/325 Mg Tab) 2 tab PO Q4 PRN PRN Reason: Pain, severe (8-10) Stop: 01/23/18 12:51 Last Admin: 01/23/18 09:08 Dose: 2 tab - Labs Labs: 01/21/18 06:00 01/21/18 06:00 - Extremities Exam Additional comments: LLE: Dressing CDI mild diffuse edema sensation intact SP/DP/TN motor intact EHL/FHL/TA/G pedal pulses intact comps soft and NT Assessment and Plan (1) Status post total hip replacement, left Assessment & Plan: POD #12 s/p L [place] -PT/OT WBAT -DVT ppx -orthopedically stable -above d/w Dr. Lopez in agreement Status: Resolved
[2018-01-24] MEDS: Oxycodone/Acetaminophen 5/325 mg Tab PO PRN ×3 (01:20→19:31)
[2018-01-24 08:15] VITALS: RESP 20
[2018-01-24] MEDS: Lidocaine 5% Patch TD SCH (08:17)
[2018-01-24] MEDS: Cholecalciferol 1,000 INTLU TAB PO SCH (08:18)
[2018-01-24] MEDS: Enoxaparin 40 mg Syringe SC SCH (08:18)
--- NOTE | 2018-01-24 08:20 | CP.PCM.PN ---
Subjective - Date & Time of Evaluation Date of Evaluation: 01/24/18 Time of Evaluation: 08:18 - Subjective Subjective: Patient complaining of thigh pain and constipation. He says the pain is still the same. Denies CP/SOB/dizziness. Objective - Vital Signs/Intake and Output Vital Signs (last 24 hours): Temp Pulse Resp BP Pulse Ox 97.0 F L 69 20 130/70 99 01/24/18 08:14 01/24/18 08:14 01/24/18 08:14 01/24/18 08:14 01/24/18 08:14 - Medications Medications: Current Medications Acetaminophen (Tylenol 325mg Tab) 650 mg PO Q4 PRN PRN Reason: Fever 101 degrees fahrenheit Aspirin (Ecotrin) 81 mg PO BID [facility] Cholecalciferol (Vitamin D) 2,000 intlu PO DAILY [facility] Last Admin: 01/23/18 09:07 Dose: 2,000 intlu Docusate Sodium (Colace) 100 mg PO BID [facility] Last Admin: 01/23/18 18:15 Dose: 100 mg Hydrochlorothiazide (Microzide) 12.5 mg PO DAILY [facility] Last Admin: 01/23/18 09:08 Dose: 12.5 mg Lactulose (Enulose) 20 gm PO DAILY PRN PRN Reason: Constipation Last Admin: 01/24/18 05:31 Dose: 20 gm Lidocaine (Lidoderm) 1 ea TD DAILY [facility] Last Admin: 01/23/18 09:07 Dose: 1 ea Losartan Potassium (Cozaar) 100 mg PO DAILY [facility] Last Admin: 01/23/18 09:08 Dose: 100 mg Oxycodone/Acetaminophen (Percocet 5/325 Mg Tab) 1 tab PO Q4 PRN PRN Reason: Pain, moderate (4-7) Stop: 01/27/18 08:17 - Labs Labs: 01/21/18 06:00 01/21/18 06:00 - Extremities Exam Additional comments: Left hip: dressing dry, continued mild LLE swelling, patient is keeping ankle elevated on wedge, and lower leg swelling improving, +ROM ankle/toes, sensation intact, calves soft NT neg homans Assessment and Plan (1) Status post total hip replacement, left Assessment & Plan: POD#13 s/p L THR -encourage colace -percocet decreased to 1 pill q4h at this time -venous dopplers last week neg DVT -change lovenox to aspirin as patient is 2 weeks out, mobile, and swelling improving -orthopedically stable -d/w Dr. Lopez, agrees with above Status: Resolved (2) Vitamin D deficiency Assessment & Plan: cont supp Status: Acute
[2018-01-24] MEDS ORDERED: Oxycodone/Acetaminophen 5/325 mg Tab PO ONE (11:30)
--- NOTE | 2018-01-24 12:57 | CP.PCM.PN ---
Subjective - Date & Time of Evaluation Date of Evaluation: 01/24/18 Time of Evaluation: 09:15 - Subjective Subjective: patient with less leg pain Objective - Vital Signs/Intake and Output Vital Signs (last 24 hours): Temp Pulse Resp BP Pulse Ox 97.0 F L 68 20 130/70 99 01/24/18 08:14 01/24/18 08:18 01/24/18 08:14 01/24/18 08:18 01/24/18 08:14 - Medications Medications: Current Medications Acetaminophen (Tylenol 325mg Tab) 650 mg PO Q4 PRN PRN Reason: Fever 101 degrees fahrenheit Aspirin (Ecotrin) 81 mg PO BID [facility] Last Admin: 01/24/18 09:36 Dose: 81 mg Cholecalciferol (Vitamin D) 2,000 intlu PO DAILY [facility] Last Admin: 01/24/18 08:18 Dose: 2,000 intlu Docusate Sodium (Colace) 100 mg PO BID [facility] Last Admin: 01/24/18 08:18 Dose: 100 mg Hydrochlorothiazide (Microzide) 12.5 mg PO DAILY [facility] Last Admin: 01/24/18 08:19 Dose: 12.5 mg Lactulose (Enulose) 20 gm PO DAILY PRN PRN Reason: Constipation Last Admin: 01/24/18 05:31 Dose: 20 gm Lidocaine (Lidoderm) 1 ea TD DAILY [facility] Last Admin: 01/24/18 08:17 Dose: 1 ea Losartan Potassium (Cozaar) 100 mg PO DAILY [facility] Last Admin: 01/24/18 08:18 Dose: 100 mg Oxycodone/Acetaminophen (Percocet 5/325 Mg Tab) 1 tab PO Q4 PRN PRN Reason: Pain, moderate (4-7) Stop: 01/27/18 08:17 - Labs Labs: 01/21/18 06:00 01/21/18 06:00 - Head Exam Head Exam: ATRAUMATIC, NORMAL INSPECTION, NORMOCEPHALIC - Eye Exam Eye Exam: EOMI, Normal appearance, PERRL Pupil Exam: NORMAL ACCOMODATION - ENT Exam ENT Exam: Mucous Membranes Moist, Normal Exam - Neck Exam Neck Exam: Normal Inspection - Respiratory Exam Respiratory Exam: Clear to Ausculation Bilateral, NORMAL BREATHING PATTERN - Cardiovascular Exam Cardiovascular Exam: REGULAR RHYTHM - GI/Abdominal Exam GI & Abdominal Exam: Soft, Normal Bowel Sounds - Rectal Exam Rectal Exam: NORMAL INSPECTION - Exam External exam: NORMAL EXTERNAL EXAM - Extremities Exam Extremities Exam: Full ROM, Normal Capillary Refill - Back Exam Back Exam: NORMAL INSPECTION - Neurological Exam Neurological Exam: Alert, Awake Neuro motor strength exam: Left Lower Extremity: 3 - Psychiatric Exam Psychiatric exam: Normal Affect, Normal Mood - Skin Skin Exam: Normal Color Assessment and Plan (1) HTN (hypertension) Status: Acute (2) Primary osteoarthritis of left hip Assessment & Plan: to continue with physical,occupational therapy program Status: Acute
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
[2018-01-25] MEDS: Oxycodone/Acetaminophen 5/325 mg Tab PO PRN ×6 (00:17→23:49)
--- NOTE | 2018-01-25 08:16 | CP.PCM.PN ---
Subjective - Date & Time of Evaluation Date of Evaluation: 01/25/18 Time of Evaluation: 08:14 - Subjective Subjective: Patient still complaining of thigh pain and swelling. No worsening since yesterday. Denies CP/SOB/dizziness. Objective - Vital Signs/Intake and Output Vital Signs (last 24 hours): Temp Pulse Resp BP Pulse Ox 98.1 F 75 20 140/64 99 01/24/18 21:39 01/24/18 21:39 01/24/18 21:39 01/24/18 21:39 01/24/18 21:39 - Medications Medications: Current Medications Acetaminophen (Tylenol 325mg Tab) 650 mg PO Q4 PRN PRN Reason: Fever 101 degrees fahrenheit Aspirin (Ecotrin) 81 mg PO BID [facility] Last Admin: 01/24/18 16:50 Dose: 81 mg Cholecalciferol (Vitamin D) 2,000 intlu PO DAILY [facility] Last Admin: 01/24/18 08:18 Dose: 2,000 intlu Docusate Sodium (Colace) 100 mg PO BID [facility] Last Admin: 01/24/18 16:50 Dose: 100 mg Hydrochlorothiazide (Microzide) 12.5 mg PO DAILY [facility] Last Admin: 01/24/18 08:19 Dose: 12.5 mg Lactulose (Enulose) 20 gm PO DAILY PRN PRN Reason: Constipation Last Admin: 01/24/18 05:31 Dose: 20 gm Lidocaine (Lidoderm) 1 ea TD DAILY [facility] Last Admin: 01/24/18 08:17 Dose: 1 ea Losartan Potassium (Cozaar) 100 mg PO DAILY [facility] Last Admin: 01/24/18 08:18 Dose: 100 mg Oxycodone/Acetaminophen (Percocet 5/325 Mg Tab) 1 tab PO Q4 PRN PRN Reason: Pain, moderate (4-7) Stop: 01/27/18 08:17 Last Admin: 01/25/18 04:13 Dose: 1 tab - Labs Labs: 01/21/18 06:00 01/21/18 06:00 - Extremities Exam Additional comments: Left thigh: improving peripheral swelling. Thigh soft. Generalized tenderness. No erythema. Incision dry, intact, healed. Tiff and sutures removed. Steristrips applied. +ROM ankle/toes, sensation intact +DP/PT pulses Assessment and Plan (1) Status post total hip replacement, left Assessment & Plan: POD#14 s/p left THR orthopedically stable keep steri strips intact aspirin 81mg PO BID for VTE proph as 2 weeks post op and mobile cont PT/OT d/w Dr. Lopez, agrees with above Status: Resolved (2) Vitamin D deficiency Status: Acute
[2018-01-25] MEDS: Cholecalciferol 1,000 INTLU TAB PO SCH (08:32)
[2018-01-25] MEDS: Lidocaine 5% Patch TD SCH (08:33)
[2018-01-26] MEDS: Oxycodone/Acetaminophen 5/325 mg Tab PO PRN ×3 (05:45→22:05)
[2018-01-26] MEDS: Lidocaine 5% Patch TD SCH (08:49)
[2018-01-26] MEDS: Cholecalciferol 1,000 INTLU TAB PO SCH (08:49)
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
[2018-01-26] MEDS ORDERED: Bisacodyl 5mg EC Tab PO ONE (17:09)
[2018-01-27] MEDS: Oxycodone/Acetaminophen 5/325 mg Tab PO PRN ×2 (02:15→06:00)
[2018-01-27] MEDS: Cholecalciferol 1,000 INTLU TAB PO SCH (08:21)
[2018-01-27] MEDS: Lidocaine 5% Patch TD SCH (08:22)
--- NOTE | 2018-01-27 10:03 | CP.PCM.PN ---
Subjective - Date & Time of Evaluation Date of Evaluation: 01/27/18 Time of Evaluation: 10:02 - Subjective Subjective: Patient with no new complaints. Says he needs the pain medication less. Denies CP/SOB/dizziness. Objective - Vital Signs/Intake and Output Vital Signs (last 24 hours): Temp Pulse Resp BP Pulse Ox 98.1 F 80 20 141/81 99 01/27/18 08:20 01/27/18 08:20 01/27/18 08:20 01/27/18 08:20 01/27/18 08:20 - Medications Medications: Current Medications Acetaminophen (Tylenol 325mg Tab) 650 mg PO Q4 PRN PRN Reason: Fever 101 degrees fahrenheit Aspirin (Ecotrin) 81 mg PO BID [facility] Last Admin: 01/27/18 08:21 Dose: 81 mg Cholecalciferol (Vitamin D) 2,000 intlu PO DAILY [facility] Last Admin: 01/27/18 08:21 Dose: 2,000 intlu Docusate Sodium (Colace) 100 mg PO BID [facility] Last Admin: 01/27/18 08:21 Dose: 100 mg Hydrochlorothiazide (Microzide) 12.5 mg PO DAILY [facility] Last Admin: 01/27/18 08:21 Dose: 12.5 mg Lactulose (Enulose) 20 gm PO DAILY PRN PRN Reason: Constipation Last Admin: 01/25/18 22:28 Dose: 20 gm Lidocaine (Lidoderm) 1 ea TD DAILY [facility] Last Admin: 01/27/18 08:22 Dose: 1 ea Losartan Potassium (Cozaar) 100 mg PO DAILY [facility] Last Admin: 01/27/18 08:21 Dose: 100 mg - Labs Labs: 01/21/18 06:00 01/21/18 06:00 - Extremities Exam Additional comments: +ROM ankle/toes, sensation intact, calves soft NT neg homans Assessment and Plan (1) Status post total hip replacement, left Assessment & Plan: orthopedically stable PT/OT VTE proph with aspirin BID taper narcotics d/w Dr. Lopez, agrees with above Status: Resolved (2) Vitamin D deficiency Status: Acute
[2018-01-27] MEDS ORDERED: Oxycodone/Acetaminophen 5/325 mg Tab PO PRN (10:04)
[2018-01-28] MEDS: Cholecalciferol 1,000 INTLU TAB PO SCH (08:54)
[2018-01-28] MEDS: Lidocaine 5% Patch TD SCH (08:55)
[2018-01-28 15:22] LABS: BASO # 0.1 K/uL (0.0-0.2); BASO % 1.4 % (0.0-2.0); EOS # 0.3 K/uL (0.0-0.7); EOS % 5.8 % (0.0-4.0); HEMOGLOBIN 11.6 g/dL (12.0-18.0); LYMPH # 1.5 K/uL (1.0-4.3); LYMPH % 29.1 % (20.0-40.0); MEAN CELL VOLUME 81.8 fl (80.0-94.0); MEAN PLATELET VOLUME 9.1 fl (7.2-11.7); MONO # 0.7 K/uL (0.0-0.8); MONO % 14.1 % (0.0-10.0); NEUT # 2.6 K/uL (1.8-7.0); NEUT % 49.6 % (50.0-75.0); RBC 4.3 Mil/uL (4.40-5.90); RED CELL DISTRIBUTION WIDTH 17.3 % (11.5-14.5); WHITE BLOOD COUNT 5.3 K/uL (4.8-10.8)
[2018-01-29] MEDS: Lidocaine 5% Patch TD SCH (09:03)
[2018-01-29] MEDS: Cholecalciferol 1,000 INTLU TAB PO SCH (09:04)
[2018-01-29 20:45] VITALS: PULSE 74
[2018-01-30] MEDS: Cholecalciferol 1,000 INTLU TAB PO SCH (08:13)
[2018-01-30] MEDS: Lidocaine 5% Patch TD SCH (08:13)
[2018-01-30 08:36] VITALS: BP 130/54; TEMP 97.9; O2SAT 99
--- NOTE | 2018-01-30 09:50 | CP.PCM.PN ---
Subjective - Date & Time of Evaluation Date of Evaluation: 01/30/18 Time of Evaluation: 07:30 - Subjective Subjective: Patient seen and examined OOB to chair comfortable. Pain continues to improve, controlled with PO tramadol. No new complaints. Scheduled to d/c to home today. Objective - Vital Signs/Intake and Output Vital Signs (last 24 hours): Temp Pulse Resp BP Pulse Ox 97.9 F 74 20 130/54 L 99 01/30/18 08:35 01/30/18 08:35 01/30/18 08:35 01/30/18 08:35 01/30/18 08:35 - Medications Medications: Current Medications Aspirin (Ecotrin) 81 mg PO BID [facility] Last Admin: 01/30/18 08:13 Dose: 81 mg Cholecalciferol (Vitamin D) 2,000 intlu PO DAILY [facility] Last Admin: 01/30/18 08:13 Dose: 2,000 intlu Docusate Sodium (Colace) 100 mg PO BID [facility] Last Admin: 01/30/18 08:13 Dose: 100 mg Hydrochlorothiazide (Microzide) 12.5 mg PO DAILY [facility] Last Admin: 01/30/18 08:13 Dose: 12.5 mg Ibuprofen (Motrin Tab) 400 mg PO Q4H PRN PRN Reason: Pain, Mild (1-3) Lactulose (Enulose) 20 gm PO DAILY PRN PRN Reason: Constipation Last Admin: 01/29/18 21:35 Dose: 20 gm Lidocaine (Lidoderm) 1 ea TD DAILY [facility] Last Admin: 01/30/18 08:13 Dose: 1 ea Losartan Potassium (Cozaar) 100 mg PO DAILY [facility] Last Admin: 01/30/18 08:13 Dose: 100 mg Tramadol HCl (Ultram) 50 mg PO Q4 PRN PRN Reason: Pain, moderate (4-7) Tramadol HCl (Ultram) 100 mg PO Q4 PRN PRN Reason: Pain, severe (8-10) Last Admin: 01/30/18 03:10 Dose: 100 mg - Labs Labs: 01/28/18 15:00 01/21/18 06:00 - Extremities Exam Additional comments: LLE: L hip incision CDI with steris mild diffuse edema sensation intact SP/DP/TN motor intact EHL/FHL/TA/G pedal pulses intact comps soft and NT Assessment and Plan (1) Status post total hip replacement, left Assessment & Plan: -PT/OT WBAT -DVT ppx -orthopedically stable for d/c today -f/u in office tomorrow -above d/w Dr. Lopez in agreement Status: Resolved
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
== END 2018-01-30 12:10 | disposition home or self-care (01) | DRG 561 ==
LOC: H.TCU 09:27
PROC: F07Z9FZ Gait Training/Functional Ambulation Treatment using Assistive, Adaptive, Supportive or Protective Equipment (ICD-10-PCS; principal; 2018-01-14)
PROC: F07L7ZZ Manual Therapy Techniques Treatment of Musculoskeletal System - Lower Back / Lower Extremity (ICD-10-PCS; 2018-01-14)
PROC: F07L6GZ Therapeutic Exercise Treatment of Musculoskeletal System - Lower Back / Lower Extremity using Aerobic Endurance and Conditioning Equipment (ICD-10-PCS; 2018-01-14)
PROC: F08Z1FZ Dressing Techniques Treatment using Assistive, Adaptive, Supportive or Protective Equipment (ICD-10-PCS; 2018-01-14)
DX: Z47.1 Aftercare following joint replacement surgery (principal); Z96.642 Presence of left artificial hip joint; I10 Essential (primary) hypertension; Z87.891 Personal history of nicotine dependence; R53.1 Weakness; K59.00 Constipation, unspecified; E55.9 Vitamin D deficiency, unspecified